=== PATIENT | female | born 1995 | race Caucasian/White ===

== ENCOUNTER 2016-12-23 20:53 | Emergency (ER) | payer OTHER ==
[~2016-12-23] VITALS: Ht 149.9 cm; Wt 46.8 kg
[~2016-12-23 20:53] MED LIST: BIRTH CONTROL
[2016-12-23 21:06] VITALS: BP 153/84; PULSE 78; RESP 20; O2SAT 100
[2016-12-23 21:52] LABS: BASOPHILS % (AUTO) 0.7 % (0-3); EOSINOPHILS % (AUTO) 5.1 % (0-5); MONOCYTES % (AUTO) 7.8 % (4-12); Mean Corpuscular Hemoglobin 32.1 pg (27.0-35.0); Mean Corpuscular Volume 90.8 fL (81-100); NEUTROPHILS % (AUTO) 53.5 % (40-74); Platelet Count 308 bil/L (150-400)
--- NOTE | 2016-12-23 22:47 | ED.REPORT ---
HPI-Abd Pain F Under 41 Date of Service Dec 23, 2016 ED Provider: Mohsen Nicolas MD A 21 year old female with a history of spastic colitis and irregular menstrual periods presents to the ED complaining of right sided pelvic pain. The pt has been experiencing this pain intermittently for some time, but felt that it was especially bad today. She was concerned that her symptoms may to due to ovarian cysts or a simliar condition. The pt also reports occasional bleeding following intercourse. She denies fever, nausea, diarrhea, or vomiting. Nursing Notes Stated Complaint: ABDOMINAL PAIN Chief Complaint: Female Abdominal Pain Nursing Notes Reviewed: Yes Allergies: Coded Allergies: No Known Allergies (Unverified Allergy, Unknown, 11/10/14) Scheduled Doxycycline Monohyd (Doxycycline Monohyd) 100 Mg Tablet 100 MG PO BID Metronidazole (Flagyl) 500 Mg Tablet 500 MG PO Q8H Scheduled PRN Naproxen (Naprosyn) 500 Mg Tablet 500 MG PO BID PRN PRN For Pain Miscellaneous Medications ([ Control]) General Time Seen by MD: 22:47 Chief Complaint Pelvic pain Hx Obtained From: Patient Arrived By: Walk-in Sudden in Onset?: No Onset Occurred: More than a week ago... Symptom Duration: Intermittent Recent Healthcare: No recent doctor visit, No recent hospitalization Similar Sx Previous: No Past Medical History Past Medical History spastic colitis irregular menstrual periods Past Surgical History Denies Smoking History Current Every Day Smoker Social History Alcohol Use: Denies alcohol use Drug Use: Denies drug use Occupation Works at [employer] Status Independent Review of Systems Constitutional: Denies: Fever Respiratory: Denies: Non-productive cough GI: Denies: Diarrhea, Nausea, Vomiting Female: Reports: Pelvic pain Musculoskeletal: Denies: Back pain, Neck pain Complete sys rev & neg: except as marked. Physical Exam Initial Vital Signs Vital Signs (First) Date Time Temp Pulse Resp B/P Pulse Ox O2 Delivery O2 Flow Rate FiO2 12/23/16 21:06 36.2 78 20 153/84 100 Room Air Initial VS: Reviewed General/Constitutional: Awake, Alert Respiratory / Chest: Atraumatic, Breath sounds NL, Breath sounds = bilat, No respiratory distress Cardiovascular: Heart rate NL, Regular rhythm, Heart sounds NL Abdomen: Atraumatic, Soft, Non-tender, BS normoactive Back: Atraumatic, Full range of motion Head / Eyes: Atraumatic, Normocephalic, PERRL, EOMI ENT: Atraumatic, Airway patent, Mucous membranes moist Skin: Atraumatic, Color NL, No rash, Warm, Dry Female Genitourinary: Plant Etiologist present, Atraumatic cervical motion tenderness thin, white vaginal discharge mildly to moderately tender uterus Neurologic: Oriented X3, Speech NL, No motor deficits, No sensory deficits Neck: Atraumatic, Supple, Full range of motion Upper Extremity / MS: Atraumatic, Full range of motion Lower Extremity / Pelvis / MS: Atraumatic, Full range of motion Psychiatric: Affect NL, Mood NL Interpretation & Diagnostics Lab Results Interpretation Result Diagram: 12/23/16213712/23/162137 Test 12/23/16 21:38 12/23/16 23:00 White Blood Count 6.1th/mm3 (3.8-10.1) Red Blood Count 4.36mil/mm3 (3.90-5.20) Hemoglobin 14.0g/dL (12.0-15.6) Hematocrit 39.6% (35.0-46.0) Mean Corpuscular Volume 90.8fL (81-100) Mean Corpuscular Hemoglobin 32.1pg (27.0-35.0) Mean Corpuscular Hemoglobin Concent 35.4% (32.0-37.0) Red Cell Distribution Width 11.3% (12.3-15.4) Platelet Count 308bil/L (150-400) Neutrophils (%) (Auto) 53.5% (40-74) Lymphocytes (%) (Auto) 32.7% (14-46) Monocytes (%) (Auto) 7.8% (4-12) Eosinophils (%) (Auto) 5.1% (0-5) Basophils (%) (Auto) 0.7% (0-3) Sodium Level 139mEq/L (134-144) Potassium Level 4.4mEq/L (3.5-5.2) Chloride Level 100mEq/L (97-108) Carbon Dioxide Level 23mmol/L (18-29) Blood Urea Nitrogen 12mg/dL (6-20) Creatinine 0.62mg/dL (0.57-1.00) Estimat Glomerular Filtration Rate 176mL/min (>59) Glucose Level 97mg/dL (60-99) Calcium Level 9.5mg/dL (8.5-10.1) Magnesium Level 2.0mg/dL (1.6-2.6) Total Bilirubin 0.5mg/dL (0.0-1.2) Aspartate Amino Transf (AST/SGOT) 44U/L (0-50) Alanine Aminotransferase (ALT/SGPT) 69U/L (0-32) Alkaline Phosphatase 66U/L (25-150) Total Protein 7.4g/dL (6.4-8.4) Albumin 5.0g/dL (3.4-5.0) Lipase 36U/L (13-60) Hold Villeda Top Tube Received (Received) Re-Eval/Medical Decision Med Decision/Clinical Course Med Decision/Clinical Course: 21-year-old presents with pelvic pain. Pelvic exam reveals a discharge and significant tender cervix and uterus. Apparent issue is endometritis. Rocephin, Flagyl, doxycycline. GC chlamydia pending. Culture pending. Discharged in stable condition. Incidental discussion with throat fairly long history of irritable bowel, negative by exclusion workup. Metamucil increasing dose suggested to three capsules twice a day. Source of Hx: Old records Re-Evaluation/Progress : Time of Eval: 23:07 Patient Status: Condition improved Re-Evaluation/Progress Note: Pt rechecked, who is resting comfortably. Pelvic exam is performed. Diagnosis and the plan for discharge are discussed. The pt understands and agrees with the plan. All questions are addressed at this time. Counseled Regarding: Diagnosis, Need for follow-up, When/why to return to ED Discharge & Departure Primary Impression: Endometritis Additional Impression: Irritable bowel syndrome (IBS) Disposition: Home Discharge Condition All VS Reviewed: Yes Condition: Stable Patient Instructions: Endometritis (ED) Additional Instructions: Begin doxycycline twice daily for ten days. Begin Flagyl three times daily for ten days. Do not drink alcohol while taking Flagyl. Continue to use an alternative method of control, until you get back on your oral contraceptive. Follow-up with your doctor in the office. He may follow up at the residency clinic if you need local coverage. [facility]. We will contact you if any results from your cultures require any additional action. Referrals: [facility] Scribe Attestation Portions of this note were transcribed by Padmini Read. I, Dr. Nicolas personally performed the history, physical exam and medical decision-making; I reviewed and confirmed the accuracy of the information in the transcribed note. Signed by: Quang Castillo, 12/23/2016 and 2324. copies to: [facility] Mohsen Nicolas MD Dec 23, 2016 22:47 PADMINI READ Dec 23, 2016 22:56
[2016-12-23] MEDS ORDERED: cefTRIAXone Inj 500 MG, Lidocaine PF 1% Inj 1 ML in Syringe 1 EACH IM ONE (23:15)
[2016-12-23] MEDS ORDERED: METR500T PO (23:19)
[2016-12-23] MEDS ORDERED: NAPR500T PO (23:19)
[2016-12-23] MEDS ORDERED: DOXY-232 PO (23:19)
== END 2016-12-24 00:25 | disposition home or self-care (01) ==
LOC: SED 20:53
DX: N71.9 Inflammatory disease of uterus, unspecified (principal); K58.9 Irritable bowel syndrome, unspecified; F17.200 Nicotine dependence, unspecified, uncomplicated
CPT/HCPCS: 36415; 80053; 81025; 83690; 83735; 85025; 87070; 87210; 87491; 87591; 96372; 99284; J0696